=== PATIENT | female | born 1990 | race Two or more races ===

== ENCOUNTER 2016-12-12 06:13 | Emergency (ER) | payer BC ==
[2016-12-12] MEDS ORDERED: ONDANSETRON 4 MG ODT TAB ONE (07:29)
[2016-12-12] MEDS ORDERED: LOPERAMIDE HCL 2 MG CAPSULE ONE (07:29)
[2016-12-12] MEDS ORDERED: ACETAMINOPHEN 500 MG TABLET ONE (07:29)
[2016-12-12 08:47] LABS: C DIFF TOXIN A/B NEGATIVE (NEGATIVE)
== END 2016-12-12 08:01 | disposition home or self-care (01) ==
LOC: ED 06:13
DX: R19.7 Diarrhea, unspecified (principal); R11.2 Nausea with vomiting, unspecified
CPT/HCPCS: 87324; 87449; 87045; 87046 ×2; 87427; 87205; 99283 ×2; A9270 ×3